=== PATIENT | male | born 2005 | race Caucasian/White ===

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

== ENCOUNTER → 2024-11-03 14:01 | Outpatient (BNVA) | payer BC, SELFPAY | PROVIDERS: PCP Family Medicine; Visit Provider Family Medicine | DX: J02.9 Acute pharyngitis, unspecified (principal) | CPT/HCPCS: 87880 ==